=== PATIENT | male | born 1945 | race Caucasian/White ===

== ENCOUNTER 2024-02-19 15:01 | Inpatient (IN) ==
[2024-02-19] MEDS: DICYCLOMINE 20 MG/2 ML VIAL IM ONE (16:35)
[2024-02-19 17:03] LABS: Basophils # (Auto) 0.03 K/mcL (0.00-0.30); Basophils % (Auto) 0.2 % (0.0-2.0); Eosinophils # (Auto) 0 K/mcL (0.00-0.70); Eosinophils % (Auto) 0 % (0.0-7.0); Hematocrit 34.7 % (40.1-51.0); Hemoglobin 11.8 g/dL (13.7-17.5); Lymphocytes # (Auto) 1.11 K/mcL (1.50-4.80); Lymphocytes % (Auto) 8.6 % (15.5-49.0); Mean Cell Volume 96.9 fL (80.0-100.0); Mean Platelet Volume 10.8 fL (8.8-12.5); Monocytes # (Auto) 0.49 K/mcL (0.10-0.90); Monocytes % (Auto) 3.8 % (1.0-12.0); Neutrophils % (Auto) 87.2 % (38.0-78.0); Platelet Count 262 K/mcL (140-440); RBC 3.58 M/mcL (4.63-6.08); Red Cell Distribution Width 13.7 % (11.5-14.5); WBC 12.9 K/mcL (4.5-11.0)
[2024-02-19 17:17] LABS: ALT/SGPT 17 U/L (<40); AST/SGOT 26 U/L (<40); Albumin 4.3 gm/dL (3.2-5.2); Albumin/Globulin Ratio 1.4 (1.0-2.3); Alkaline Phosphatase 70 U/L (39-117); Bilirubin,Total 0.5 mg/dL (0.1-1.0); Blood Urea Nitrogen 40 mg/dL (8-23); Carbon Dioxide 19 mmol/L (22-30); Chloride 103 mmol/L (96-108); Globulin 3.1 gm/dL (2.2-3.7); Glomerular Filtration Rate 35; Glucose 193 mg/dL (70-105)
[2024-02-19] MEDS ORDERED: DEXTROSE 31 GM ORAL.SUSP PO PRN (19:17)
[2024-02-19] MEDS ORDERED: DEXTROSE 50% 50 ML VIAL IV PRN (19:17)
[2024-02-19 19:59] LABS: Appearance,Urine Cloudy (Clear); Bacteria,Urine Few /hpf (0); Bilirubin,Urine Negative (Negative); Color,Urine Yellow; Culture Indicated,Urine Yes; Glucose,Urine (UA) Negative (Negative); Ketones,Urine Negative (Negative); Leukocyte Esterase,Urine Large /uL (Negative); Nitrate,Urine Negative (Negative); Protein,Urine 100 mg/dL (Negative); Specific Gravity,Urine 1.015 (1.000-1.035); Urine Blood Large ery/mcL (Negative); Urine RBC > 182 /hpf (0-1); Urine Squamous Epithelial Cell 0 /hpf (0-4); Urine WBC > 182 /hpf (0-4); Urobilinogen,Urine Normal
[2024-02-19] MEDS ORDERED: hydrALAZINE 20 MG/ML VIAL IV PRN ×2 (20:03→20:33)
[2024-02-19] MEDS ORDERED: ACETAMINOPHEN 325 MG TABLET PO PRN (20:33)
[2024-02-19] MEDS ORDERED: ONDANSETRON 4 MG/2 ML VIAL IV PRN (20:33)
[2024-02-19] MEDS ORDERED: HYDROmorphone 0.5 MG/0.5 ML SYRINGE IV PRN (20:33)
[2024-02-19 21:31] LABS: Hemoglobin A1C 7.3 % Hgb (4.0-6.0)
[2024-02-19] MEDS: INSULIN LISPRO 1 UNIT/0.01 ML UNIT SQ SCH (22:27)
[2024-02-19] MEDS: cloNIDine HCL 0.1 MG TABLET PO SCH (22:28)
[2024-02-19] MEDS: amLODIPine 10 MG TABLET PO SCH (22:29)
[2024-02-19] MEDS: oxyCODONE IR 5 MG TABLET PO PRN (22:29)
[2024-02-19] MEDS: PEG 3350/NA SULF,BICARB,CL/KCL 4,000 ML ORAL.SOL PO SCH (22:29)
[2024-02-19] MEDS: SENNOSIDES 1 TABLET PO SCH (22:29)
[2024-02-19] MEDS: DOCUSATE SODIUM 100 MG CAPSULE PO SCH (22:30)
[2024-02-19] MEDS: LACTATED RINGERS 1,000 ML IV SCH (22:42)
[2024-02-19] MEDS: 0.9 % SODIUM CHLORIDE 10 ML SYRINGE IV SCH (22:43)
[2024-02-19] MEDS: CIPROFLOXACIN 400 MG/200 ML BAG IV SCH (23:21)
[2024-02-19] MEDS: metroNIDAZOLE 100 ML IV ONE (23:22)
[2024-02-19] MEDS: metroNIDAZOLE 500 MG/100 ML BAG IV SCH (23:23)
[2024-02-19] MEDS: CIPROFLOXACIN 400 MG/200 ML BAG IV ONE (23:23)
[2024-02-20 06:20] LABS: Basophils # (Auto) 0.03 K/mcL (0.00-0.30); Basophils % (Auto) 0.3 % (0.0-2.0); Eosinophils # (Auto) 0.06 K/mcL (0.00-0.70); Eosinophils % (Auto) 0.5 % (0.0-7.0); Hematocrit 33.4 % (40.1-51.0); Lymphocytes # (Auto) 1.59 K/mcL (1.50-4.80); Lymphocytes % (Auto) 14.5 % (15.5-49.0); Mean Cell Volume 102.1 fL (80.0-100.0); Mean Corpuscular HGB Conc 32.9 g/dL (31.0-36.0); Mean Platelet Volume 10.7 fL (8.8-12.5); Monocytes # (Auto) 0.93 K/mcL (0.10-0.90); Monocytes % (Auto) 8.5 % (1.0-12.0); Platelet Count 244 K/mcL (140-440); RBC 3.27 M/mcL (4.63-6.08); Red Cell Distribution Width 14.1 % (11.5-14.5)
[2024-02-20 06:34] LABS: ALT/SGPT 13 U/L (<40); AST/SGOT 26 U/L (<40); Albumin 4.1 gm/dL (3.2-5.2); Albumin/Globulin Ratio 1.3 (1.0-2.3); Alkaline Phosphatase 65 U/L (39-117); Bilirubin,Total 0.6 mg/dL (0.1-1.0); Blood Urea Nitrogen 38 mg/dL (8-23); Calcium 9.5 mg/dL (8.6-10.4); Carbon Dioxide 21 mmol/L (22-30); Chloride 103 mmol/L (96-108); Globulin 3.1 gm/dL (2.2-3.7); Glomerular Filtration Rate 37; Glucose 150 mg/dL (70-105)
[2024-02-20] MEDS: CIPROFLOXACIN 400 MG/200 ML BAG IV SCH (08:46)
[2024-02-20] MEDS: metroNIDAZOLE 500 MG/100 ML BAG IV SCH (10:06)
[2024-02-20] MEDS: FLEETS ADULT 1 DOSE ENEMA PR SCH (15:33)
[2024-02-21 07:08] LABS: Basophils # (Auto) 0.03 K/mcL (0.00-0.30); Basophils % (Auto) 0.6 % (0.0-2.0); Eosinophils # (Auto) 0.16 K/mcL (0.00-0.70); Eosinophils % (Auto) 3.2 % (0.0-7.0); Hematocrit 29.9 % (40.1-51.0); Hemoglobin 9.8 g/dL (13.7-17.5); Lymphocytes % (Auto) 29.8 % (15.5-49.0); Mean Cell Volume 103.1 fL (80.0-100.0); Mean Corpuscular HGB Conc 32.8 g/dL (31.0-36.0); Monocytes # (Auto) 0.47 K/mcL (0.10-0.90); Monocytes % (Auto) 9.3 % (1.0-12.0); Neutrophils % (Auto) 57.1 % (38.0-78.0); Platelet Count 191 K/mcL (140-440); Red Cell Distribution Width 13.9 % (11.5-14.5)
[2024-02-21 07:19] LABS: ALT/SGPT 9 U/L (<40); AST/SGOT 23 U/L (<40); Albumin 3.5 gm/dL (3.2-5.2); Albumin/Globulin Ratio 1.5 (1.0-2.3); Alkaline Phosphatase 54 U/L (39-117); Bilirubin,Total 0.4 mg/dL (0.1-1.0); Blood Urea Nitrogen 27 mg/dL (8-23); Calcium 8.9 mg/dL (8.6-10.4); Carbon Dioxide 23 mmol/L (22-30); Chloride 105 mmol/L (96-108); Globulin 2.3 gm/dL (2.2-3.7); Glomerular Filtration Rate 43; Glucose 221 mg/dL (70-105)
[2024-02-21] MEDS: METOPROLOL SUCCINATE 25 MG TAB.XL.24H PO SCH (08:43)
[2024-02-22 07:12] LABS: Basophils # (Auto) 0.02 K/mcL (0.00-0.30); Basophils % (Auto) 0.4 % (0.0-2.0); Eosinophils # (Auto) 0.18 K/mcL (0.00-0.70); Eosinophils % (Auto) 3.4 % (0.0-7.0); Hematocrit 30.5 % (40.1-51.0); Hemoglobin 10.1 g/dL (13.7-17.5); Lymphocytes # (Auto) 1.91 K/mcL (1.50-4.80); Lymphocytes % (Auto) 36.6 % (15.5-49.0); Mean Cell Volume 100.3 fL (80.0-100.0); Mean Corpuscular HGB Conc 33.1 g/dL (31.0-36.0); Monocytes # (Auto) 0.42 K/mcL (0.10-0.90); Neutrophils % (Auto) 51.4 % (38.0-78.0); Platelet Count 193 K/mcL (140-440); RBC 3.04 M/mcL (4.63-6.08); Red Cell Distribution Width 13.7 % (11.5-14.5); WBC 5.2 K/mcL (4.5-11.0)
[2024-02-22 07:39] LABS: ALT/SGPT 9 U/L (<40); AST/SGOT 24 U/L (<40); Albumin 3.7 gm/dL (3.2-5.2); Albumin/Globulin Ratio 1.4 (1.0-2.3); Alkaline Phosphatase 58 U/L (39-117); Bilirubin,Total 0.4 mg/dL (0.1-1.0); Blood Urea Nitrogen 19 mg/dL (8-23); Calcium 9.3 mg/dL (8.6-10.4); Carbon Dioxide 24 mmol/L (22-30); Chloride 106 mmol/L (96-108); Globulin 2.6 gm/dL (2.2-3.7); Glomerular Filtration Rate 51; Glucose 150 mg/dL (70-105)
== END 2024-02-22 12:20 | disposition home or self-care (01) | DRG 389 ==
LOC: ED 15:01 → MEDSUR 20:21
PROVIDERS: ADMIT Surgery Surgical Critical Care; ATTEND Internal Medicine